=== PATIENT | female | born 1990 | race Caucasian/White ===

== ENCOUNTER 2017-07-09 09:23 | Emergency (ER) | payer MEDICAID ==
[~2017-07-09] VITALS: Ht 154.9 cm; Wt 69.4 kg
[2017-07-09 09:26] VITALS: BP 111/72
[2017-07-09] MEDS ORDERED: NACL 0.9% 1,000 ML IV SCH (10:02)
[2017-07-09] MEDS ORDERED: MORPHINE SULFATE 2 MG/ML SYR IVP ONE (10:05)
[2017-07-09] MEDS ORDERED: KETOROLAC 30 MG/ML VIAL IVP ONE (10:05)
[2017-07-09] MEDS ORDERED: ONDANSETRON 4 MG/2 ML VIAL IVP ONE (10:05)
[2017-07-09 10:40] LABS: APPEARANCE,URINE CLEAR (CLEAR); BILIRUBIN,URINE NEGATIVE (NEGATIVE); BLOOD, URINE 2+ (NEGATIVE); COLOR,URINE YELLOW (YELLOW); LEUKOCYTE ESTERASE ,URINE NEGATIVE (NEGATIVE); NITRITE, URINE NEGATIVE (NEGATIVE); PH,URINE 6.5 (5.0-9.0); UGLUCOSE NEGATIVE (NEGATIVE)
[2017-07-09 10:42] LABS: BASOPHILS # (AUTO) 0.3 K/uL (0.00-0.22); BASOPHILS % (AUTO) 3.5 % (0.0-2.0); EOSINOPHILS # (AUTO) 0.1 K/uL (0-0.4); EOSINOPHILS % (AUTO) 0.7 % (0.0-4.0); HEMATOCRIT 43.2 % (36-48); HEMOGLOBIN 14.2 g/dL (12.0-16.0); LYMPHOCYTES # (AUTO) 2.4 K/uL (2.5-16.5); LYMPHOCYTES % (AUTO) 27.9 % (20.5-51.1); MEAN CORPUSCULAR HEMOGLOBIN 28 pg (27-31); MEAN CORPUSCULAR HGB CONC 33 g/dL (33-37); MEAN CORPUSCULAR VOLUME 86 fL (80-94); MONOCYTES # (AUTO) 0.5 K/uL (0.8-1.0); MONOCYTES % (AUTO) 5.5 % (1.7-9.3); NEUTROPHILS # (AUTO) 5.4 K/uL (1.8-7.7); NEUTROPHILS % (AUTO) 62.4 % (42.2-75.2); PLATELET COUNT (AUTO) 368 K/uL (140-450); RED CELL DISTRIBUTION WIDTH 12.3 % (11.6-13.7); WHITE BLOOD COUNT (AUTO) 8.7 K/uL (4.8-10.8)
[2017-07-09 10:51] LABS: ANION GAP 15.1 (8-16); CARBON DIOXIDE 24.8 mmol/L (21-32); CREATININE 0.6 mg/dL (0.6-1.3); POTASSIUM 3.9 mmol/L (3.5-5.1)
[2017-07-09 10:57] LABS: ALBUMIN 4.4 g/dL (3.4-5.0); TOTAL BILIRUBIN 0.6 mg/dL (0.0-1.0)
[2017-07-09 11:07] LABS: RBC,URINE 3-10 (FEW) /HPF (0-5)
[2017-07-09 12:10] VITALS: BP 110/68
== END 2017-07-09 12:10 | disposition home or self-care (01) ==
LOC: MED 09:23
DX: K43.9 Ventral hernia without obstruction or gangrene (principal)
CPT/HCPCS: 36415; 74176; 80053; 81001; 81025; 82150; 83690; 84703; 85025; 87086; 96361; 96374; 96375; 99285; J1885; J2270; J2405; J7030

== ENCOUNTER 2017-09-17 13:46 | Emergency (ER) | payer MEDICAID ==
[~2017-09-17] VITALS: Ht 154.9 cm; Wt 71.4 kg
[2017-09-17 13:49] VITALS: BP 118/75
--- NOTE | 2017-09-17 13:55 | NUR ---
pt amb to bed 4
--- NOTE | 2017-09-17 13:56 | NUR ---
27/F BIB SISTER C/O LT THIGH CELLULITIS x 5 DAYS. PT DENIES TRAUMA OR INJURY. PT STATED CAME HERE 2 DAYS AGO & GOT KEFLEX AND CLINDAMYCIN. DENIES N/V/D; SKIN IS PINK/WARM/DRY; AAOX4 WITH EVEN AND STEADY GAIT; LUNGS CLEAR BL. PATIENT STATES PAIN OF 6/10 AT THIS TIME. PATIENT POSITIONED FOR COMFORT; HOB ELEVATED; BEDRAILS UP X2; BED DOWN. ER MD MADE AWARE OF PT STATUS.
--- NOTE | 2017-09-17 14:11 | NUR ---
Patient being evaluated by DR AGUILAR at bedside.
[2017-09-17] MEDS ORDERED: traMADol 50 MG TAB PO ONE (14:20)
[2017-09-17 14:53] VITALS: BP 118/75
== END 2017-09-17 14:53 | disposition home or self-care (01) ==
LOC: MED 13:46
DX: L03.116 Cellulitis of left lower limb (principal)
CPT/HCPCS: 99283

== ENCOUNTER 2017-10-24 16:38 | Emergency (ER) | payer MEDICAID ==
[~2017-10-24] VITALS: Ht 154.9 cm; Wt 69.9 kg
[2017-10-24 16:42] VITALS: BP 119/81
--- NOTE | 2017-10-24 16:45 | NUR ---
PT SENT TO LOBBY TO WAIT FOR BED.
--- NOTE | 2017-10-24 17:12 | NUR ---
PT AMBULATED TO ER BED 04
--- NOTE | 2017-10-24 17:18 | NUR ---
PT COMES TO ER WITH C/O COUGH AND CONGESTION X4 DAYS ASSOCIATED WITH GENERLAIZED BODY ACHES. PROD COUGH/FAIR AMT OF YELLOW SPUTUM. PT DENIES ANY CP OR SOB. LS-COARSE RADHA, RT CALLED FOR TX. RESP EVEN AND UNLABORED, ON RA @99% PT DENIES ANY FEVERS/CHILLS.
[2017-10-24] MEDS ORDERED: DEXAMETHASONE 10 MG/ML VIAL IM ONE (17:30)
[2017-10-24] MEDS ORDERED: ALBUTEROL SULFATE/IPRATROPIU 3 ML SOL IH ONE (17:30)
[2017-10-24] MEDS ORDERED: cefTRIAXone 1,000 MG in LIDOCAINE 1% ***ER ONLY *** 2.1 ML IM ONE (17:30)
[2017-10-24] MEDS ORDERED: cefTRIAXone 1,000 MG VIAL ONE (17:44)
[2017-10-24] MEDS ORDERED: LIDOCAINE MPF 1% - **ER/OR** 5 ML ONE (17:46)
[2017-10-24 18:25] VITALS: BP 123/74
--- NOTE | 2017-10-24 18:31 | NUR ---
REPORTS FEELING BETTER AFTER BREATHING TX. DR ALDANA UPDATED ON CONDITION. WAIITCURTIS FOR DISPOSITION.
--- NOTE | 2017-10-24 18:59 | NUR ---
Patient discharged with v/s stable. Written and verbal after care instructions given and explained. Patient alert, oriented and verbalized understanding of instructions. Ambulatory with steady gait. All questions addressed prior to discharge. ID band removed. Patient advised to follow up with PMD. Rx of albuterol, prednisone given. Patient educated on indication of medication including possible reaction and side effects. Opportunity to ask questions provided and answered.
== END 2017-10-24 18:59 | disposition home or self-care (01) ==
LOC: MED 16:38
DX: J45.909 Unspecified asthma, uncomplicated (principal)
CPT/HCPCS: 94640; 96372; 99284; J0696; J1100; J2001; J7620